=== PATIENT | male | born 1965 | race Caucasian/White ===

== ENCOUNTER → 2018-03-03 | Outpatient (CLI) | payer OTHER | END | disposition home or self-care (01) | LOC: RAD 09:14 | DX: I25.10 Atherosclerotic heart disease of native coronary artery without angina pectoris (principal); I50.1 Left ventricular failure, unspecified; I21.29 ST elevation (STEMI) myocardial infarction involving other sites | CPT/HCPCS: 71046 ==

== ENCOUNTER 2020-01-14 14:12 | Emergency (ER) | payer MEDICAID, OTHER ==
[~2020-01-14] VITALS: Ht 185.4 cm; Wt 100.0 kg
[~2020-01-14 14:12] MED LIST: ALPR0.25 PO; AMLO5TAB10 PO; AMLO5TAB4 PO; ASPI-482 PO; CARV12.511 PO; CARV25TA PO; CARV6.25 PO; CLOP75TA57 PO; FLUO20CA20 PO; LOSA-73 PO; PARO20TA3 PO; SIMV40TA18 PO; losartan
[2020-01-14 14:40] VITALS: BP 183/110
[2020-01-14] MEDS ORDERED: AMOXICILLIN 250 MG CAPSULE. PO ONE (15:45)
[2020-01-14] MEDS ORDERED: KETOROLAC 60 MG/2 ML VIAL. IM ONE (15:45)
[2020-01-14] MEDS ORDERED: methylPREDNISolone SOD SUCC PF 125 MG/2 ML VIAL. IM ONE (15:45)
[2020-01-14] MEDS ORDERED: IBUP-1007 PO (16:15)
[2020-01-14] MEDS ORDERED: AMOX500C PO (16:15)
[2020-01-14] MEDS ORDERED: HYDR-3164 PO (16:15)
--- NOTE | 2020-01-14 16:15 | PHYS DOC ---
Past Medical History Past Medical History: High Cholesterol, Heart Disease, Hypertension, [place] Past Surgical History: Other Additional Past Surgical Histo: cardiac stent Smoking Status: Never Smoker Alcohol Use: Rarely Drug Use: None General Adult EDM: Chief Complaint: DENTAL PROBLEM HPI: HPI: Patient is a 54 year old presented to the ER today for evaluation of left lower dental pain and facial swelling. Patient has this dental problem for several weeks but woke up this morning with swelling so he came here for evaluation. Patient denied any fever. He was able to open and close his mouth without any problem. No headache, no neck pain. Review of Systems: Review of Systems: Constitutional: Denies fever or chills. [] Eyes: Denies change in visual acuity. [] HENT: Denies nasal congestion or sore throat. Positive for dental pain and left side facial swelling. Respiratory: Denies cough or shortness of breath. [] Cardiovascular: Denies chest pain or edema. [] GI: Denies abdominal pain, nausea, vomiting, bloody stools or diarrhea. [] : Denies dysuria. [] Musculoskeletal: Denies back pain or joint pain. [] Integument: Denies rash. [] Neurologic: Denies headache, focal weakness or sensory changes. [] Endocrine: Denies polyuria or polydipsia. [] Lymphatic: Denies swollen glands. [] Psychiatric: Denies depression or anxiety. [] Heart Score: Risk Factors: Risk Factors: DM, Current or recent (<one month) smoker, HTN, HLP, family history of CAD, obesity. Risk Scores: Score 0 - 3: 2.5% MACE over next 6 weeks - Discharge Home Score 4 - 6: 20.3% MACE over next 6 weeks - Admit for Clinical Observation Score 7 - 10: 72.7% MACE over next 6 weeks - Early Invasive Strategies Current Medications: Current Medications Medications (Trade) Dose Ordered Sig/Amari Start Time Stop Time Status Last Admin Dose Admin Amoxicillin (Amoxil) 1,000 mg 1X ONCE 01/14/20 15:45 01/14/20 15:46 DC 01/14/20 15:52 1,000 MG Ketorolac Tromethamine (Toradol Im) 60 mg 1X ONCE 01/14/20 15:45 20 15:46 DC 01/14/20 15:51 60 MG Methylprednisolone Sodium Succinate (SOLU-Medrol 125MG VIAL) 125 mg 1X ONCE 01/14/20 15:45 01/14/20 15:46 DC 01/14/20 15:52 125 MG Allergies: Allergies: Allergies Coded Allergies Type Severity Reaction Last Updated Verified No Known Drug Allergies 05/23/14 No Physical Exam: PE: Constitutional: Well developed, well nourished, no acute distress, non-toxic appearance. [] HENT: Normocephalic, atraumatic, bilateral external ears normal, oropharynx moist, no oral exudates, nose normal. Left side lower jaw swelling, no palpable abscess. LEFT LOWER MOLARS WITH DENTAL DECAY AND SWOLLEN GUMLINE. Eyes: PERRLA, EOMI, conjunctiva normal, no discharge. [] Neck: Normal range of motion, no tenderness, supple, no stridor. [] Cardiovascular:Heart rate regular rhythm, no murmur [] Lungs & Thorax: Bilateral breath sounds clear to auscultation [] Abdomen: Bowel sounds normal, soft, no tenderness, no masses, no pulsatile masses. [] Skin: Warm, dry, no erythema, no rash. [] Back: No tenderness, no CVA tenderness. [] Extremities: No tenderness, no cyanosis, no clubbing, ROM intact, no edema. [] Neurologic: Alert and oriented X 3, normal motor function, normal sensory functi on, no focal deficits noted. [] Psychologic: Affect normal, judgement normal, mood normal. [] Current Patient Data: Vital Signs: Vital Signs Date Time Temp Pulse Resp B/P (MAP) Pulse Ox O2 Delivery O2 Flow Rate FiO2 01/14/20 14:40 98.9 112 18 183/110 (134) 97 Room Air 98.9 EKG: EKG: [] Radiology/Procedures: Radiology/Procedures: [] Course & Med Decision Making: Course & Med Decision Making Pertinent Labs and Imaging studies reviewed. (See chart for details) [] Franko Disclaimer: Franko Disclaimer: This electronic medical record was generated, in whole or in part, using a voice recognition dictation system. Departure Departure Impression: Primary Impression: Dental abscess Disposition: 01 HOME, SELF-CARE Condition: STABLE Referrals: NO PCP (PCP) PLEASE FOLLOW UP WITH YOUR DENTIST THIS WEEK Patient Instructions: Dental Abscess, Dental Caries Scripts Ibuprofen (IBUPROFEN) 600 Mg Tablet 600 MG PO PRN Q6HRS PRN for INFLAMMATION, #20 TAB Prov: DNONELL DAO DO 01/14/20 Hydrocodone/Apap 5-325 (NORCO 5-325 TABLET) 1 Each Tablet 1 TAB PO PRN Q6HRS PRN for PAIN, #12 TAB 0 Refills Prov: DONNELL DAO DO 01/14/20 Amoxicillin (AMOXICILLIN) 500 Mg Capsule 1 CAP PO TID, #30 CAP Prov: DONNELL DAO DO 01/14/20 DONNELL DAO DO January 14, 2020 16:15
== END 2020-01-14 16:25 | disposition home or self-care (01) ==
LOC: ER 14:12
DX: K04.7 Periapical abscess without sinus (principal); I11.9 Hypertensive heart disease without heart failure; E78.00 Pure hypercholesterolemia, unspecified; I25.2 Old myocardial infarction; Z95.5 Presence of coronary angioplasty implant and graft
CPT/HCPCS: 96372; 99284; J1885; J2930

== ENCOUNTER 2020-02-10 11:39 | Emergency (ER) | payer OTHER ==
[~2020-02-10] VITALS: Ht 185.4 cm; Wt 90.0 kg
[~2020-02-10 11:39] MED LIST changes: +AMOX500C PO; +HYDR-3164 PO; +IBUP-1007 PO
[2020-02-10 11:50] VITALS: BP 202/98
--- NOTE | 2020-02-10 12:36 | PHYS DOC ---
Past Medical History Past Medical History: High Cholesterol, Heart Disease, Hypertension, [place] Past Surgical History: Other Additional Past Surgical Histo: cardiac stent Smoking Status: Never Smoker Alcohol Use: Rarely Drug Use: None General Adult EDM: Chief Complaint: DENTAL PROBLEM HPI: HPI: Patient is a 54 year old male who presents to the emergency department with complaints of an abscess in the right lower quadrant of his mouth that began yesterday. Patient states he was seen here 3 weeks ago for a dental infection and dental pain in the same area. He finished his antibiotics about 5 days ago and noticed swelling again yesterday. He denies any dental pain at this time. Patient denies any drainage or bleeding from the swollen area. Patient states that he fractured 1 of his molars in the right lower quadrant about 6 weeks ago and has not been able to follow-up with a dentist yet. Patient denies any fever, cough, sore throat, ear pain, headache, nausea, vomiting, abdominal pain, body aches, fatigue, or rash. He currently denies any pain. Review of Systems: Review of Systems: Constitutional: Denies fever or chills. [] Eyes: Denies change in visual acuity. [] HENT: Denies nasal congestion or sore throat.; See HPI [] Respiratory: Denies cough or shortness of breath. [] Cardiovascular: Denies chest pain or edema. [] GI: Denies abdominal pain, nausea, vomiting, or diarrhea. [] Musculoskeletal: Denies back pain or joint pain. [] Integument: Denies rash. [] Neurologic: Denies headache, focal weakness or sensory changes. [] Lymphatic: Denies swollen glands. [] Psychiatric: Denies depression or anxiety. [] Heart Score: Risk Factors: Risk Factors: DM, Current or recent (<one month) smoker, HTN, HLP, family history of CAD, obesity. Risk Scores: Score 0 - 3: 2.5% MACE over next 6 weeks - Discharge Home Score 4 - 6: 20.3% MACE over next 6 weeks - Admit for Clinical Observation Score 7 - 10: 72.7% MACE over next 6 weeks - Early Invasive Strategies Allergies: Allergies: Allergies Coded Allergies Type Severity Reaction Last Updated Verified No Known Drug Allergies 05/23/14 No Physical Exam: PE: Constitutional: Well developed, well nourished, no acute distress, non-toxic appearance. [] HENT: Normocephalic, atraumatic, bilateral external ears normal, bilateral TMs normal, posterior pharynx normal, oropharynx moist, nose normal; visible dental abscess with gingival erythema and edema noted to the lateral gingiva of the right posterior mandible draining bloody pus; dental caries and broken tooth also noted in the right lower quadrant. [] Eyes: PERRLA, EOMI, conjunctiva normal, no discharge. [] Neck: Normal range of motion, no tenderness, supple, no stridor. [] Cardiovascular:Heart rate regular rhythm Lungs & Thorax: Respirations even and unlabored, no retractions, no respiratory distress Skin: Warm, dry, no erythema, no rash. [] Extremities: No cyanosis, ROM intact, no edema. [] Neurologic: Alert and oriented X 3, no focal deficits noted. [] Psychologic: Affect normal, judgement normal, mood normal. [] Current Patient Data: Vital Signs: Vital Signs Date Time Temp Pulse Resp B/P (MAP) Pulse Ox O2 Delivery O2 Flow Rate FiO2 02/10/20 11:50 98.9 100 18 202/98 (132) 98 Room Air 98.9 EKG: EKG: [] Radiology/Procedures: Radiology/Procedures: [] Course & Med Decision Making: Course & Med Decision Making Pertinent Labs and Imaging studies reviewed. (See chart for details) Patient is a 54-year-old male who presented to the emergency department with complaints of a dental abscess in the right lower quadrant since yesterday. Jonel arredondo reported that he still has pain medication that was prescribed at his previous visit about 3 weeks ago. A prescription was written for clindamycin and Peridex. Patient was provided with a list of dental clinics in the area. Encouraged patient to fill the prescriptions use them as directed, take his remaining pain medication that was previously prescribed as needed. Return to the ER if symptoms worsen or he develops a fever. Patient verbalized an understanding of home care, medications, follow-up, and return to ED instructions and was in agreement with the plan of care. [] Dragon Disclaimer: Dragon Disclaimer: This electronic medical record was generated, in whole or in part, using a voice recognition dictation system. Departure Departure Impression: Primary Impression: Abscess, dental Disposition: HOME, SELF-CARE Condition: STABLE Referrals: NO PCP (PCP) Patient Instructions: Dental Abscess Additional Instructions: Fill prescription(s) and use as directed. Follow up with dentist using the referral list provided. Return to the ER if symptoms worsen. Scripts Chlorhexidine Gluconate (PERIDEX) 15 Ml Mouthwash 15 ML SWSP BID for 10 Days, #1 BOT 0 Refills [place] your teeth before use of this medication and rinse thoroughly after using the medication as it may stain your teeth. Prov: THU REESE APRN 02/10/20 Clindamycin Hcl (CLINDAMYCIN HCL) 150 Mg Capsule 300 MG PO TID for 10 Days, #60 CAP 0 Refills Prov: THU REESE APRN 02/10/20 Justicifation of Admission Dx: Justifications for Admission: Justification of Admission Dx: N/A THU REESE APRN Feb 10, 2020 12:36
[2020-02-10] MEDS ORDERED: CHLO15MO2 SWSP (12:40)
[2020-02-10] MEDS ORDERED: CLIN150C14 PO (12:40)
[2020-02-10] MEDS ORDERED: CLINDAMYCIN HCL 150 MG CAPSULE. PO ONE (13:00)
== END 2020-02-10 12:57 | disposition home or self-care (01) ==
LOC: ER 11:39
DX: K04.7 Periapical abscess without sinus (principal); I11.9 Hypertensive heart disease without heart failure; E78.00 Pure hypercholesterolemia, unspecified; I25.2 Old myocardial infarction; Z95.5 Presence of coronary angioplasty implant and graft
CPT/HCPCS: 99283